=== PATIENT | male | born 1950 | race Caucasian/White ===

== ENCOUNTER 2016-08-07 17:20 | Inpatient (IN) | payer BC ==
[~2016-08-07 17:20] MED LIST: ALTACE10 M1 PO; ALTACE10 M4 PO; ASPIRIN81 MG PO; AUGMENTIN 875-11 TAB PO; AVODART0.5 M1 PO; AVODART0.5 MG PO; BACTRIM DS TAB1 EAC2 PO; CYCLOBENZAPRINE5 M1 PO; DAILY VITE1 EACH PO; DEXILANT60 M1 PO; DEXILANT60 MG PO; EC-NAPROSYN500 MG PO; FINASTERIDE5 M1 PO; HYDROCODONE; KEFLEX500 M4 PO; LANSOPRAZOLE30 M2 PO; LIPITOR80 M1 PO; LIPITOR80 MG PO; LO-DOSE ASPIRIN81 M2 PO; LO-DOSE ASPIRIN81 MG PO; LOVENOX40 MG/0.4 SQ; METOPROLOL SUCC50 M1 PO; MULTIVITAMIN1 TAB PO; MULTIVITAMINS1 EAC6 PO; NAPROSYN500 MG PO; NAPROXEN500 M2 PO; NORCO 5-325 TA1 EACH PO; OMEPRAZOLE20 M3 PO; PLAVIX75 M1 PO; PLAVIX75 MG PO; PROZAC20 M2 PO; PROZAC20 M3 PO; RESTORIL15 M1 PO; RESTORIL15 MG PO; TECFIDERA PO; TECFIDERA240 MG PO; TOPROL XL50 MG PO; ULTRAM50 M1 PO; ULTRAM50 MG PO; VITAMIN D31000 UNI3 PO; WELCHOL625 MG PO; XANAX0.5 M1 PO; XANAX0.5 MG PO; ZOCOR80 MG PO; [UNRECOGNIZED DRUG - OTHER] PO
[2016-08-07] MEDS ORDERED: NAPROSYN500 M1 PO (17:29)
[2016-08-07 18:01] LABS: BASO % 0.3 % (0-2); EOS % 3.3 % (0-7); EOSINOPHIL ABSOLUTE COUNT 0.4 tho/cmm (0.0-0.7); HCT-HEMATOCRIT 42.5 % (36.0-53.5); HGB-HEMOGLOBIN 14.3 gm/dl (13.5-17.0); IMMATURE GRANULOCYTES ABSOLUTE 0.03 tho/cmm (0-0.03); IMMATURE GRANULOCYTES PERCENT 0.3 % (0-0.3); LYMPH ABSOLUTE COUNT 1.3 tho/cmm (0.8-4.5); MCH (MEAN CORPUSCULAR HGB) 27.7 pg (28.0-32.0); MCHC MEAN CORPUSCULAR HGB CONC 33.6 % (32.0-36.0); MCV (MEAN CELL VOLUME) 82.2 fl (82.0-96.0); MEAN PLATELET VOLUME 9.1 cmc (9.4-12.4); MONO % 10.7 % (0-12); MONOCYTE ABSOLUTE COUNT 1.2 tho/cmm (0.0-1.2); NEUTROPHIL ABSOLUTE COUNT 8.5 tho/cmm (1.6-8.0); NEUTROPHIL-AUTOMATED 8.5 tho/cmm (1.6-8.0); NEUTROPHILS % 74.4 % (40-80); PLATELET COUNT 287 tho/cmm (150-450); RED BLOOD COUNT 5.17 mil/cmm (4.40-5.70); RED CELL DISTRIBUTION WIDTH 16.2 % (12.4-16.4); WHITE BLOOD COUNT 11.4 tho/cmm (4.0-10.0)
[2016-08-07 18:17] LABS: ANION GAP 13 mmol/L (0-20); BLOOD UREA NITROGEN 33 mg/dl (6-24); CALCIUM 8.9 mg/dl (8.5-10.5); CARBON DIOXIDE-VENOUS 27 mmol/L (22-32); CHLORIDE 103 mmol/l (96-110); CREATININE 1.17 mg/dl (0.60-1.30); GLUCOSE 109 mg/dL (70-110); POTASSIUM 4.3 mmol/L (3.7-5.1); SODIUM 139 mmol/L (135-145); eGFR VALUE FOR BLACK 75 mL/Min
[2016-08-07 18:40] LABS: ABG CO2 ARTERIAL 26 mmol/L (21-27); ARTERIAL BLD GAS O2 SATURATION 97 % (95-98); ARTERIAL BLOOD GAS PCO2 35 mmHg (32-45); ARTERIAL PO2 86 mmHg (70-100); BICARBONATE 25 mmol/L (21-28); BLOOD GAS BASE EXCESS 2 mM/L (-/+3); PH 7.46 Units (7.35-7.45)
[2016-08-08 16:26] LABS: BODY FLUID APPEARANCE CLOUDY (CLEAR); BODY FLUID COLOR RED (COLORLESS); BODY FLUID TYPE RIGHT PLEURAL; BODY FLUID VOLUME 2250 ml
[2016-08-08 16:27] LABS: BODY FLUID RBC COUNT 23000 cmm (0); BODY FLUID WBC COUNT 1067 cmm
[2016-08-08 16:30] LABS: BODY FLUID EOSINOPHILS 16 %; BODY FLUID LYMPHOCYTES 26 %; BODY FLUID MACROPHAGES 21 %; BODY FLUID NEUTROPHILS 37 %
[2016-08-08 16:32] LABS: BODY FLUID TYPE PLEURAL
[2016-08-10 10:13] LABS: BODY FLUID TYPE PLEURAL
[2016-08-10] MEDS ORDERED: NEOMYCIN SULFA500 M1 PO (17:49)
[2016-08-10 20:25] LABS: PROTHROMBIN TIME 10.7 SECONDS (9.0-13.6)
[2016-08-11] MEDS ORDERED: AMOXICILLIN500 M1 PO (19:49)
[2016-09-16] MEDS ORDERED: STIOLTO RESPIMAT4 GM PO (18:09)
[2016-09-16] MEDS ORDERED: FLONASE ALLERG9.9 ML (18:14)
[2016-09-16] MEDS ORDERED: SALINE NASAL14.1 GM TP (18:16)
[2016-09-16] MEDS ORDERED: NYSTATIN15 G1 TP (18:19)
[2016-09-16] MEDS ORDERED: IPRATROPIUM BRO15 M1 (18:20)
== END 2016-08-10 18:20 | DRG 180 ==
LOC: EDMED 17:20 → EMR2 19:42 → 5WF 20:36
PROVIDERS: Emergency Medicine; Internal Medicine Pulmonary Disease; ADMIT Family Medicine
PROC: 0W993ZZ Drainage of Right Pleural Cavity, Percutaneous Approach (ICD-10-PCS; principal; 2016-08-08)
DX: C34.90 Malignant neoplasm of unspecified part of unspecified bronchus or lung (principal); J96.01 Acute respiratory failure with hypoxia; J91.0 Malignant pleural effusion; I50.30 Unspecified diastolic (congestive) heart failure; I25.10 Atherosclerotic heart disease of native coronary artery without angina pectoris; Z95.5 Presence of coronary angioplasty implant and graft; Z79.82 Long term (current) use of aspirin; Z79.02 Long term (current) use of antithrombotics/antiplatelets; F41.9 Anxiety disorder, unspecified; G35 Multiple sclerosis; Z87.898 Personal history of other specified conditions; I73.9 Peripheral vascular disease, unspecified; K21.9 Gastro-esophageal reflux disease without esophagitis; Z98.1 Arthrodesis status; I25.2 Old myocardial infarction; Z87.891 Personal history of nicotine dependence; K63.89 Other specified diseases of intestine; R19.7 Diarrhea, unspecified; I11.0 Hypertensive heart disease with heart failure; E78.5 Hyperlipidemia, unspecified; M19.90 Unspecified osteoarthritis, unspecified site; Z86.718 Personal history of other venous thrombosis and embolism; Z79.899 Other long term (current) drug therapy
CPT/HCPCS: A9577; J7030; Q9967

== ENCOUNTER 2016-08-11 17:37 | Emergency (ER) | payer BC ==
[~2016-08-11 17:37] MED LIST changes: +NAPROSYN500 M1 PO; +NEOMYCIN SULFA500 M1 PO
[2016-08-11 18:09] LABS: BASO % 0.2 % (0-2); EOS % 2.8 % (0-7); EOSINOPHIL ABSOLUTE COUNT 0.3 tho/cmm (0.0-0.7); HCT-HEMATOCRIT 41.8 % (36.0-53.5); HGB-HEMOGLOBIN 14.2 gm/dl (13.5-17.0); IMMATURE GRANULOCYTES ABSOLUTE 0.04 tho/cmm (0-0.03); IMMATURE GRANULOCYTES PERCENT 0.4 % (0-0.3); LYMPH % 9.7 % (20-45); MCH (MEAN CORPUSCULAR HGB) 27.7 pg (28.0-32.0); MCV (MEAN CELL VOLUME) 81.5 fl (82.0-96.0); MEAN PLATELET VOLUME 8.7 cmc (9.4-12.4); MONO % 9.5 % (0-12); MONOCYTE ABSOLUTE COUNT 0.9 tho/cmm (0.0-1.2); NEUTROPHIL ABSOLUTE COUNT 7.7 tho/cmm (1.6-8.0); NEUTROPHIL-AUTOMATED 7.7 tho/cmm (1.6-8.0); NEUTROPHILS % 77.4 % (40-80); PLATELET COUNT 298 tho/cmm (150-450); RED BLOOD COUNT 5.13 mil/cmm (4.40-5.70); RED CELL DISTRIBUTION WIDTH 15.6 % (12.4-16.4); WHITE BLOOD COUNT 9.9 tho/cmm (4.0-10.0)
[2016-08-11 18:15] LABS: PROTHROMBIN TIME 12.1 SECONDS (9.0-13.6)
[2016-08-11 18:29] LABS: ANION GAP 13 mmol/L (0-20); BLOOD UREA NITROGEN 14 mg/dl (6-24); CALCIUM 9.1 mg/dl (8.5-10.5); CARBON DIOXIDE-VENOUS 29 mmol/L (22-32); CHLORIDE 103 mmol/l (96-110); CREATININE 0.84 mg/dl (0.60-1.30); GLUCOSE 99 mg/dL (70-110); SODIUM 141 mmol/L (135-145); eGFR VALUE FOR BLACK >90 mL/Min
[2016-08-11 18:45] LABS: ABG CO2 ARTERIAL 28 mmol/L (21-27); ARTERIAL BLD GAS O2 SATURATION 96 % (95-98); ARTERIAL BLOOD GAS PCO2 39 mmHg (32-45); ARTERIAL PO2 81 mmHg (70-100); BICARBONATE 27 mmol/L (21-28); BLOOD GAS BASE EXCESS 4 mM/L (-/+3); PH 7.46 Units (7.35-7.45)
[2016-08-11] MEDS ORDERED: AMOXICILLIN500 M1 PO (19:49)
[2016-09-16] MEDS ORDERED: STIOLTO RESPIMAT4 GM PO (18:09)
[2016-09-16] MEDS ORDERED: FLONASE ALLERG9.9 ML (18:14)
[2016-09-16] MEDS ORDERED: SALINE NASAL14.1 GM TP (18:16)
[2016-09-16] MEDS ORDERED: NYSTATIN15 G1 TP (18:19)
[2016-09-16] MEDS ORDERED: IPRATROPIUM BRO15 M1 (18:20)
== END 2016-08-11 20:10 ==
LOC: EDMED 17:37
PROVIDERS: Emergency Medicine
DX: C34.90 Malignant neoplasm of unspecified part of unspecified bronchus or lung (principal); I25.10 Atherosclerotic heart disease of native coronary artery without angina pectoris; I10 Essential (primary) hypertension; Z86.718 Personal history of other venous thrombosis and embolism; E78.5 Hyperlipidemia, unspecified; M19.90 Unspecified osteoarthritis, unspecified site; Z95.5 Presence of coronary angioplasty implant and graft; Z98.890 Other specified postprocedural states; Z79.82 Long term (current) use of aspirin; Z79.899 Other long term (current) drug therapy

== ENCOUNTER 2016-08-27 19:53 | Inpatient (IN) | payer BC ==
[~2016-08-27 19:53] MED LIST changes: +AMOXICILLIN500 M1 PO
[2016-08-27] MEDS ORDERED: FOLIC ACID1 M1 PO (20:08)
[2016-08-27] MEDS ORDERED: DURAGESIC1 EAC1 TOP (20:08)
[2016-08-27] MEDS ORDERED: PERCOCET 5-3251 EACH PO (20:09)
[2016-08-27 20:32] LABS: BASO % 0.1 % (0-2); EOS % 1.6 % (0-7); EOSINOPHIL ABSOLUTE COUNT 0.2 tho/cmm (0.0-0.7); HCT-HEMATOCRIT 39.1 % (36.0-53.5); IMMATURE GRANULOCYTES ABSOLUTE 0.06 tho/cmm (0-0.03); IMMATURE GRANULOCYTES PERCENT 0.4 % (0-0.3); LYMPH % 3.2 % (20-45); LYMPH ABSOLUTE COUNT 0.5 tho/cmm (0.8-4.5); MCH (MEAN CORPUSCULAR HGB) 27.3 pg (28.0-32.0); MCHC MEAN CORPUSCULAR HGB CONC 33.2 % (32.0-36.0); MCV (MEAN CELL VOLUME) 82.1 fl (82.0-96.0); MEAN PLATELET VOLUME 9.2 cmc (9.4-12.4); MONO % 8.1 % (0-12); MONOCYTE ABSOLUTE COUNT 1.2 tho/cmm (0.0-1.2); NEUTROPHIL ABSOLUTE COUNT 12.7 tho/cmm (1.6-8.0); NEUTROPHIL-AUTOMATED 12.7 tho/cmm (1.6-8.0); NEUTROPHILS % 86.6 % (40-80); PLATELET COUNT 317 tho/cmm (150-450); RED BLOOD COUNT 4.76 mil/cmm (4.40-5.70); RED CELL DISTRIBUTION WIDTH 14.8 % (12.4-16.4); WHITE BLOOD COUNT 14.6 tho/cmm (4.0-10.0)
[2016-08-27 20:35] LABS: ABG CO2 ARTERIAL 28 mmol/L (21-27); ARTERIAL BLD GAS O2 SATURATION 98 % (95-98); ARTERIAL BLOOD GAS PCO2 40 mmHg (32-45); ARTERIAL PO2 120 mmHg (70-100); BICARBONATE 27 mmol/L (21-28); BLOOD GAS BASE EXCESS 3 mM/L (-/+3); PH 7.44 Units (7.35-7.45)
[2016-08-27 20:37] LABS: INR 1.1 INR (0.9-1.1); PROTHROMBIN TIME 12.6 SECONDS (9.0-13.6)
[2016-08-27 20:47] LABS: ALB/GLOB RATIO 0.6 (0.8-2.0); ALBUMIN 2.8 g/dl (3.5-5.0); ALKALINE PHOSPHATASE 107 U/L (33-138); ALT/SGPT 17 U/L (12-78); ANION GAP 16 mmol/L (0-20); AST/SGOT 21 U/L (10-40); BILIRUBIN,TOTAL 0.9 mg/dl (0.0-1.5); BLOOD UREA NITROGEN 22 mg/dl (6-24); CALCIUM 8.9 mg/dl (8.5-10.5); CARBON DIOXIDE-VENOUS 26 mmol/L (22-32); CHLORIDE 95 mmol/l (96-110); CREATININE 1.05 mg/dl (0.60-1.30); GLUCOSE 196 mg/dL (70-110); POTASSIUM 4.5 mmol/L (3.7-5.1); SODIUM 132 mmol/L (135-145); eGFR VALUE FOR BLACK 85 mL/Min
[2016-08-27 22:50] LABS: URINE APPEARANCE CLEAR; URINE BILIRUBIN NEGATIVE (NEG); URINE BLOOD NEGATIVE (NEG); URINE COLOR YELLOW; URINE GLUCOSE (UA) NEGATIVE (NEG); URINE KETONE NEGATIVE (NEG); URINE LEUKOCYTE ESTERASE NEGATIVE (NEG); URINE NITRITE NEGATIVE (NEG); URINE PROTEIN SMALL (NEG)
[2016-08-27 22:55] LABS: URINE EPITHELIAL CELLS 0-1 /[HPF] (0-10); URINE RBC 0 /[HPF] (0-5); URINE WBC 0-1 /[HPF] (0-5)
[2016-08-27 22:56] LABS: URINE BACTERIA 2+; URINE MUCUS 2+
[2016-08-28] MEDS ORDERED: ANORO ELLIPTA1 EAC1 INH (12:23)
[2016-08-28] MEDS ORDERED: VENTOLIN HFA18 G2 INH (12:23)
[2016-08-29 06:08] LABS: ABG CO2 ARTERIAL 28 mmol/L (21-27); ARTERIAL BLD GAS O2 SATURATION 93 % (95-98); ARTERIAL BLOOD GAS PCO2 43 mmHg (32-45); BICARBONATE 27 mmol/L (21-28); BLOOD GAS BASE EXCESS 2 mM/L (-/+3)
[2016-08-29 06:10] LABS: ARTERIAL PO2 69 mmHg (70-100)
[2016-08-30 04:44] LABS: ABG CO2 ARTERIAL 25 mmol/L (21-27); ARTERIAL BLD GAS O2 SATURATION 91 % (95-98); ARTERIAL BLOOD GAS PCO2 44 mmHg (32-45); ARTERIAL PO2 70 mmHg (70-100); BICARBONATE 24 mmol/L (21-28); BLOOD GAS BASE EXCESS -1 mM/L (-/+3); PH 7.35 Units (7.35-7.45)
[2016-08-30 06:08] LABS: HCT-HEMATOCRIT 36.6 % (36.0-53.5); HGB-HEMOGLOBIN 11.9 gm/dl (13.5-17.0); IMMATURE GRANULOCYTES ABSOLUTE 0.07 tho/cmm (0-0.03); IMMATURE GRANULOCYTES PERCENT 0.4 % (0-0.3); LYMPH % 1.8 % (20-45); LYMPH ABSOLUTE COUNT 0.3 tho/cmm (0.8-4.5); MCH (MEAN CORPUSCULAR HGB) 26.6 pg (28.0-32.0); MCHC MEAN CORPUSCULAR HGB CONC 32.5 % (32.0-36.0); MCV (MEAN CELL VOLUME) 81.7 fl (82.0-96.0); MEAN PLATELET VOLUME 9.4 cmc (9.4-12.4); MONO % 7.2 % (0-12); MONOCYTE ABSOLUTE COUNT 1.2 tho/cmm (0.0-1.2); NEUTROPHIL ABSOLUTE COUNT 15.6 tho/cmm (1.6-8.0); NEUTROPHIL-AUTOMATED 15.6 tho/cmm (1.6-8.0); NEUTROPHILS % 90.6 % (40-80); PLATELET COUNT 290 tho/cmm (150-450); RED BLOOD COUNT 4.48 mil/cmm (4.40-5.70); WHITE BLOOD COUNT 17.2 tho/cmm (4.0-10.0)
[2016-08-30 06:21] LABS: ALB/GLOB RATIO 0.5 (0.8-2.0); ALBUMIN 2.1 g/dl (3.5-5.0); ALKALINE PHOSPHATASE 92 U/L (33-138); ALT/SGPT 24 U/L (12-78); ANION GAP 11 mmol/L (0-20); AST/SGOT 30 U/L (10-40); BILIRUBIN,TOTAL 0.5 mg/dl (0.0-1.5); BLOOD UREA NITROGEN 24 mg/dl (6-24); CALCIUM 8.1 mg/dl (8.5-10.5); CARBON DIOXIDE-VENOUS 26 mmol/L (22-32); CHLORIDE 108 mmol/l (96-110); CREATININE 0.91 mg/dl (0.60-1.30); GLUCOSE 113 mg/dL (70-110); SODIUM 141 mmol/L (135-145); eGFR VALUE FOR BLACK >90 mL/Min
[2016-08-30 08:29] LABS: ABG CO2 ARTERIAL 25 mmol/L (21-27); ARTERIAL BLD GAS O2 SATURATION 93 % (95-98); ARTERIAL BLOOD GAS PCO2 37 mmHg (32-45); ARTERIAL PO2 65 mmHg (70-100); BICARBONATE 24 mmol/L (21-28); BLOOD GAS BASE EXCESS 0 mM/L (-/+3); PH 7.42 Units (7.35-7.45)
--- NOTE | 2016-08-30 10:53 | NUR ---
[id number] RN bedside handoff with Sherin. Patient refusing Bipap insisting to be put back on Heated High Flow nasal canula. Placed on 50L 70%. Patient satuaration 85% to 90% and improving when focusing on breathing and not conversing. Significant other at bedside insisting patient not be placed back on Bipap. I notified RT that patient is back on HHF and to please come check settings and adjust as needed. I also notified Lori charge gang weigher patient MEWS 5, Family and patient refusing Bipap back on HHF. RT to bedside. 1281 RT called an ADDING MACHINE MECHANIC stating patient on 70L 100% with O2 saturations in the 90's. Casandra with Pulmonary to bedside with Dr. Higgins. Discussion provided by Dr. Higgins and Casandra to patient and significant other the need for Bipap or intubation.
--- NOTE | 2016-08-30 12:52 | NUR ---
REPORT GIVEN TO JUDY BY PHONE [id number]
[2016-08-31 13:20] LABS: INR 1.1 INR (0.9-1.1); PROTHROMBIN TIME 13.1 SECONDS (9.0-13.6)
[2016-09-01 05:27] LABS: ABG CO2 ARTERIAL 28 mmol/L (21-27); ARTERIAL BLD GAS O2 SATURATION 94 % (95-98); ARTERIAL BLOOD GAS PCO2 43 mmHg (32-45); BICARBONATE 26 mmol/L (21-28); BLOOD GAS BASE EXCESS 2 mM/L (-/+3)
[2016-09-01 05:28] LABS: ARTERIAL PO2 79 mmHg (70-100)
[2016-09-01 07:47] LABS: HCT-HEMATOCRIT 35.8 % (36.0-53.5); HGB-HEMOGLOBIN 11.8 gm/dl (13.5-17.0); IMMATURE GRANULOCYTES ABSOLUTE 0.07 tho/cmm (0-0.03); IMMATURE GRANULOCYTES PERCENT 0.5 % (0-0.3); LYMPH % 2.8 % (20-45); LYMPH ABSOLUTE COUNT 0.4 tho/cmm (0.8-4.5); MCH (MEAN CORPUSCULAR HGB) 26.8 pg (28.0-32.0); MCV (MEAN CELL VOLUME) 81.4 fl (82.0-96.0); MEAN PLATELET VOLUME 9.4 cmc (9.4-12.4); MONO % 5.2 % (0-12); MONOCYTE ABSOLUTE COUNT 0.7 tho/cmm (0.0-1.2); NEUTROPHIL ABSOLUTE COUNT 12.5 tho/cmm (1.6-8.0); NEUTROPHIL-AUTOMATED 12.5 tho/cmm (1.6-8.0); NEUTROPHILS % 91.5 % (40-80); PLATELET COUNT 234 tho/cmm (150-450); RED CELL DISTRIBUTION WIDTH 15.2 % (12.4-16.4); WHITE BLOOD COUNT 13.6 tho/cmm (4.0-10.0)
[2016-09-01 12:16] LABS: PROCALCITONIN 0.08 ng/ml (0.05-0.09)
[2016-09-02 04:58] LABS: ABG CO2 ARTERIAL 30 mmol/L (21-27); ARTERIAL BLD GAS O2 SATURATION 96 % (95-98); ARTERIAL BLOOD GAS PCO2 46 mmHg (32-45); ARTERIAL PO2 85 mmHg (70-100); BICARBONATE 29 mmol/L (21-28); BLOOD GAS BASE EXCESS 4 mM/L (-/+3); PH 7.42 Units (7.35-7.45)
[2016-09-02 04:58] LABS: HCT-HEMATOCRIT 34.6 % (36.0-53.5); HGB-HEMOGLOBIN 11.4 gm/dl (13.5-17.0); IMMATURE GRANULOCYTES ABSOLUTE 0.05 tho/cmm (0-0.03); IMMATURE GRANULOCYTES PERCENT 0.3 % (0-0.3); LYMPH ABSOLUTE COUNT 0.3 tho/cmm (0.8-4.5); MCH (MEAN CORPUSCULAR HGB) 26.7 pg (28.0-32.0); MCHC MEAN CORPUSCULAR HGB CONC 32.9 % (32.0-36.0); MEAN PLATELET VOLUME 9.4 cmc (9.4-12.4); MONO % 6.3 % (0-12); MONOCYTE ABSOLUTE COUNT 0.9 tho/cmm (0.0-1.2); NEUTROPHIL ABSOLUTE COUNT 13.6 tho/cmm (1.6-8.0); NEUTROPHIL-AUTOMATED 13.6 tho/cmm (1.6-8.0); NEUTROPHILS % 91.4 % (40-80); PLATELET COUNT 206 tho/cmm (150-450); RED BLOOD COUNT 4.27 mil/cmm (4.40-5.70); RED CELL DISTRIBUTION WIDTH 15.4 % (12.4-16.4); WHITE BLOOD COUNT 14.9 tho/cmm (4.0-10.0)
[2016-09-02 05:15] LABS: ALB/GLOB RATIO 0.6 (0.8-2.0); ALKALINE PHOSPHATASE 102 U/L (33-138); ALT/SGPT 26 U/L (12-78); ANION GAP 9 mmol/L (0-20); AST/SGOT 16 U/L (10-40); BILIRUBIN,TOTAL 0.3 mg/dl (0.0-1.5); BLOOD UREA NITROGEN 32 mg/dl (6-24); CALCIUM 8.3 mg/dl (8.5-10.5); CARBON DIOXIDE-VENOUS 29 mmol/L (22-32); CHLORIDE 107 mmol/l (96-110); GLUCOSE 154 mg/dL (70-110); POTASSIUM 4.3 mmol/L (3.7-5.1); SODIUM 141 mmol/L (135-145); eGFR VALUE FOR BLACK >90 mL/Min
[2016-09-03 05:29] LABS: ANION GAP 9 mmol/L (0-20); BLOOD UREA NITROGEN 40 mg/dl (6-24); CALCIUM 8.2 mg/dl (8.5-10.5); CARBON DIOXIDE-VENOUS 33 mmol/L (22-32); CHLORIDE 104 mmol/l (96-110); GLUCOSE 155 mg/dL (70-110); POTASSIUM 4.3 mmol/L (3.7-5.1); SODIUM 142 mmol/L (135-145); eGFR VALUE FOR BLACK >90 mL/Min
[2016-09-04 04:01] LABS: BASO % 0.1 % (0-2); HCT-HEMATOCRIT 33.6 % (36.0-53.5); HGB-HEMOGLOBIN 11.1 gm/dl (13.5-17.0); IMMATURE GRANULOCYTES ABSOLUTE 0.05 tho/cmm (0-0.03); IMMATURE GRANULOCYTES PERCENT 0.4 % (0-0.3); LYMPH % 3.4 % (20-45); LYMPH ABSOLUTE COUNT 0.4 tho/cmm (0.8-4.5); MCH (MEAN CORPUSCULAR HGB) 26.7 pg (28.0-32.0); MEAN PLATELET VOLUME 9.1 cmc (9.4-12.4); MONO % 3.1 % (0-12); MONOCYTE ABSOLUTE COUNT 0.4 tho/cmm (0.0-1.2); NEUTROPHIL ABSOLUTE COUNT 11.5 tho/cmm (1.6-8.0); NEUTROPHIL-AUTOMATED 11.5 tho/cmm (1.6-8.0); PLATELET COUNT 173 tho/cmm (150-450); RED BLOOD COUNT 4.15 mil/cmm (4.40-5.70); RED CELL DISTRIBUTION WIDTH 15.1 % (12.4-16.4); WHITE BLOOD COUNT 12.4 tho/cmm (4.0-10.0)
[2016-09-04 04:20] LABS: ALB/GLOB RATIO 0.7 (0.8-2.0); ALBUMIN 2.2 g/dl (3.5-5.0); ALKALINE PHOSPHATASE 99 U/L (33-138); ALT/SGPT 28 U/L (12-78); ANION GAP 8 mmol/L (0-20); AST/SGOT 18 U/L (10-40); BILIRUBIN,TOTAL 0.3 mg/dl (0.0-1.5); BLOOD UREA NITROGEN 44 mg/dl (6-24); CALCIUM 8.2 mg/dl (8.5-10.5); CARBON DIOXIDE-VENOUS 35 mmol/L (22-32); CHLORIDE 102 mmol/l (96-110); CREATININE 0.75 mg/dl (0.60-1.30); GLUCOSE 219 mg/dL (70-110); POTASSIUM 4.3 mmol/L (3.7-5.1); SODIUM 141 mmol/L (135-145); eGFR VALUE FOR BLACK >90 mL/Min
[2016-09-05 03:56] LABS: EOS % 2.8 % (0-7); EOSINOPHIL ABSOLUTE COUNT 0.3 tho/cmm (0.0-0.7); HCT-HEMATOCRIT 33.7 % (36.0-53.5); HGB-HEMOGLOBIN 11.2 gm/dl (13.5-17.0); IMMATURE GRANULOCYTES ABSOLUTE 0.05 tho/cmm (0-0.03); IMMATURE GRANULOCYTES PERCENT 0.4 % (0-0.3); LYMPH % 4.3 % (20-45); LYMPH ABSOLUTE COUNT 0.5 tho/cmm (0.8-4.5); MCH (MEAN CORPUSCULAR HGB) 27.2 pg (28.0-32.0); MCHC MEAN CORPUSCULAR HGB CONC 33.2 % (32.0-36.0); MCV (MEAN CELL VOLUME) 81.8 fl (82.0-96.0); MEAN PLATELET VOLUME 9.3 cmc (9.4-12.4); MONO % 3.5 % (0-12); MONOCYTE ABSOLUTE COUNT 0.4 tho/cmm (0.0-1.2); NEUTROPHIL ABSOLUTE COUNT 10.6 tho/cmm (1.6-8.0); NEUTROPHIL-AUTOMATED 10.6 tho/cmm (1.6-8.0); PLATELET COUNT 171 tho/cmm (150-450); RED BLOOD COUNT 4.12 mil/cmm (4.40-5.70); RED CELL DISTRIBUTION WIDTH 14.8 % (12.4-16.4); WHITE BLOOD COUNT 11.9 tho/cmm (4.0-10.0)
[2016-09-05 04:07] LABS: ALB/GLOB RATIO 0.6 (0.8-2.0); ALKALINE PHOSPHATASE 88 U/L (33-138); ALT/SGPT 27 U/L (12-78); ANION GAP 7 mmol/L (0-20); AST/SGOT 20 U/L (10-40); BILIRUBIN,TOTAL 0.4 mg/dl (0.0-1.5); BLOOD UREA NITROGEN 44 mg/dl (6-24); CALCIUM 7.9 mg/dl (8.5-10.5); CARBON DIOXIDE-VENOUS 37 mmol/L (22-32); CHLORIDE 101 mmol/l (96-110); CREATININE 0.66 mg/dl (0.60-1.30); GLUCOSE 133 mg/dL (70-110); POTASSIUM 3.8 mmol/L (3.7-5.1); SODIUM 141 mmol/L (135-145); eGFR VALUE FOR BLACK >90 mL/Min
[2016-09-05] MEDS ORDERED: IPRAT-ALBUT 0.5-3 ML AERO NEB (09:11)
[2016-09-05] MEDS ORDERED: XANAX1 M1 PO (09:12)
[2016-09-05] MEDS ORDERED: PROTONIX40 M2 PO (09:13)
[2016-09-05] MEDS ORDERED: DELTASONE20 MG PO ×2 (09:15→09:17)
[2016-09-05] MEDS ORDERED: PREDNISONE20 M1 PO (09:16)
[2016-09-05] MEDS ORDERED: PREDNISONE10 M1 PO (09:17)
[2016-09-05] MEDS ORDERED: LASIX20 M1 PO (09:18)
[2016-09-05 11:16] LABS: C-REACTIVE PROTEIN 0.5 mg/dl (0-0.9)
[2016-09-06 03:59] LABS: EOS % 7.8 % (0-7); EOSINOPHIL ABSOLUTE COUNT 0.9 tho/cmm (0.0-0.7); HCT-HEMATOCRIT 33.4 % (36.0-53.5); HGB-HEMOGLOBIN 10.9 gm/dl (13.5-17.0); IMMATURE GRANULOCYTES ABSOLUTE 0.02 tho/cmm (0-0.03); IMMATURE GRANULOCYTES PERCENT 0.2 % (0-0.3); LYMPH % 4.9 % (20-45); LYMPH ABSOLUTE COUNT 0.6 tho/cmm (0.8-4.5); MCH (MEAN CORPUSCULAR HGB) 26.8 pg (28.0-32.0); MCHC MEAN CORPUSCULAR HGB CONC 32.6 % (32.0-36.0); MCV (MEAN CELL VOLUME) 82.1 fl (82.0-96.0); MEAN PLATELET VOLUME 9.3 cmc (9.4-12.4); MONO % 1.1 % (0-12); MONOCYTE ABSOLUTE COUNT 0.1 tho/cmm (0.0-1.2); PLATELET COUNT 156 tho/cmm (150-450); RED BLOOD COUNT 4.07 mil/cmm (4.40-5.70); RED CELL DISTRIBUTION WIDTH 14.8 % (12.4-16.4); WHITE BLOOD COUNT 11.6 tho/cmm (4.0-10.0)
[2016-09-07 04:55] LABS: EOSINOPHIL ABSOLUTE COUNT 0.9 tho/cmm (0.0-0.7); HCT-HEMATOCRIT 32.7 % (36.0-53.5); HGB-HEMOGLOBIN 10.6 gm/dl (13.5-17.0); IMMATURE GRANULOCYTES ABSOLUTE 0.03 tho/cmm (0-0.03); IMMATURE GRANULOCYTES PERCENT 0.3 % (0-0.3); LYMPH % 6.8 % (20-45); LYMPH ABSOLUTE COUNT 0.7 tho/cmm (0.8-4.5); MCH (MEAN CORPUSCULAR HGB) 26.7 pg (28.0-32.0); MCHC MEAN CORPUSCULAR HGB CONC 32.4 % (32.0-36.0); MCV (MEAN CELL VOLUME) 82.4 fl (82.0-96.0); MEAN PLATELET VOLUME 9.5 cmc (9.4-12.4); MONO % 1.7 % (0-12); MONOCYTE ABSOLUTE COUNT 0.2 tho/cmm (0.0-1.2); NEUTROPHILS % 83.2 % (40-80); PLATELET COUNT 170 tho/cmm (150-450); RED BLOOD COUNT 3.97 mil/cmm (4.40-5.70); RED CELL DISTRIBUTION WIDTH 14.5 % (12.4-16.4); WHITE BLOOD COUNT 10.8 tho/cmm (4.0-10.0)
[2016-09-08 03:35] LABS: EOS % 4.5 % (0-7); EOSINOPHIL ABSOLUTE COUNT 0.6 tho/cmm (0.0-0.7); HCT-HEMATOCRIT 33.9 % (36.0-53.5); IMMATURE GRANULOCYTES ABSOLUTE 0.07 tho/cmm (0-0.03); IMMATURE GRANULOCYTES PERCENT 0.6 % (0-0.3); LYMPH % 4.6 % (20-45); LYMPH ABSOLUTE COUNT 0.6 tho/cmm (0.8-4.5); MCH (MEAN CORPUSCULAR HGB) 26.5 pg (28.0-32.0); MCHC MEAN CORPUSCULAR HGB CONC 32.4 % (32.0-36.0); MCV (MEAN CELL VOLUME) 81.7 fl (82.0-96.0); MEAN PLATELET VOLUME 9.3 cmc (9.4-12.4); MONO % 2.8 % (0-12); MONOCYTE ABSOLUTE COUNT 0.4 tho/cmm (0.0-1.2); NEUTROPHIL ABSOLUTE COUNT 11.1 tho/cmm (1.6-8.0); NEUTROPHIL-AUTOMATED 11.1 tho/cmm (1.6-8.0); NEUTROPHILS % 87.5 % (40-80); PLATELET COUNT 160 tho/cmm (150-450); RED BLOOD COUNT 4.15 mil/cmm (4.40-5.70); RED CELL DISTRIBUTION WIDTH 14.5 % (12.4-16.4); WHITE BLOOD COUNT 12.7 tho/cmm (4.0-10.0)
[2016-09-08] MEDS ORDERED: XANAX0.5 M1 PO (13:11)
[2016-09-08] MEDS ORDERED: PULMICORT0.5 MG/22 AERO NEB (13:13)
[2016-09-08] MEDS ORDERED: PROSCAR5 M1 PO (13:14)
[2016-09-16] MEDS ORDERED: STIOLTO RESPIMAT4 GM PO (18:09)
[2016-09-16] MEDS ORDERED: FLONASE ALLERG9.9 ML (18:14)
[2016-09-16] MEDS ORDERED: SALINE NASAL14.1 GM TP (18:16)
[2016-09-16] MEDS ORDERED: NYSTATIN15 G1 TP (18:19)
[2016-09-16] MEDS ORDERED: IPRATROPIUM BRO15 M1 (18:20)
== END 2016-09-08 14:10 | DRG 853 ==
LOC: EDMED 19:53 → EMR2 22:21 → PCUA 08-28 08:25 → CCU 08-30 09:09
PROVIDERS: Emergency Medicine; Internal Medicine Hematology & Oncology; Internal Medicine Pulmonary Disease; Nurse Practitioner; ADMIT Family Medicine
PROC: 02HV33Z Insertion of Infusion Device into Superior Vena Cava, Percutaneous Approach (ICD-10-PCS; 2016-08-28)
PROC: 0B9F8ZX Drainage of Right Lower Lung Lobe, Via Natural or Artificial Opening Endoscopic, Diagnostic (ICD-10-PCS; principal; 2016-08-29)
PROC: 0BBF8ZX Excision of Right Lower Lung Lobe, Via Natural or Artificial Opening Endoscopic, Diagnostic (ICD-10-PCS; 2016-08-29)
DX: A41.9 Sepsis, unspecified organism (principal); J18.9 Pneumonia, unspecified organism; J96.21 Acute and chronic respiratory failure with hypoxia; J91.0 Malignant pleural effusion; C78.2 Secondary malignant neoplasm of pleura; C79.51 Secondary malignant neoplasm of bone; C34.90 Malignant neoplasm of unspecified part of unspecified bronchus or lung; I10 Essential (primary) hypertension; G35 Multiple sclerosis; I25.10 Atherosclerotic heart disease of native coronary artery without angina pectoris; E78.5 Hyperlipidemia, unspecified; N40.0 Benign prostatic hyperplasia without lower urinary tract symptoms; F41.9 Anxiety disorder, unspecified; Z86.718 Personal history of other venous thrombosis and embolism
CPT/HCPCS: C1729; C1751; J1100; J1650; J1815; J1940; J1956; J2060; J2250; J2469; J2543; J2920; J2930; J3010; J3370; J7030; J7050; J7512; J9035; J9045; J9305